=== PATIENT | male | born 1965 | race African-American/Black ===

== ENCOUNTER 2019-04-13 12:31 | Emergency (ER) | payer OTHER ==
[~2019-04-13] VITALS: Ht 170.2 cm; Wt 83.9 kg
[2019-04-13 12:35] VITALS: BP 202/115
[2019-04-13] MEDS ORDERED: ZESTORETIC 20-1 EAC2 PO ×2 (12:38→12:39)
[2019-04-13] MEDS ORDERED: METFORMIN HCL500 MG PO ×2 (12:38→12:39)
== END 2019-04-13 12:50 | disposition home or self-care (01) ==
LOC: M.ERS 12:31
DX: I10 Essential (primary) hypertension (principal); E11.9 Type 2 diabetes mellitus without complications; Z76.0 Encounter for issue of repeat prescription; F17.210 Nicotine dependence, cigarettes, uncomplicated

== ENCOUNTER 2020-04-24 03:46 | Emergency (ER) | payer OTHER ==
[~2020-04-24] VITALS: Ht 170.2 cm; Wt 81.7 kg
[~2020-04-24 03:46] MED LIST: METFORMIN HCL500 MG PO; ZESTORETIC 20-1 EAC2 PO
[2020-04-24] MEDS ORDERED: NORVASC 2.5 MG2.5 M1 PO ×2 (03:58→04:34)
[2020-04-24] MEDS ORDERED: METFORMIN HCL500 MG PO (04:34)
[2020-04-24] MEDS ORDERED: LISINOPRIL-HCT1 EAC2 PO (04:34)
[2020-04-24 04:40] VITALS: BP 146/76
== END 2020-04-24 04:42 | disposition home or self-care (01) ==
LOC: M.ERS 03:46
DX: Z48.01 Encounter for change or removal of surgical wound dressing (principal); Z76.0 Encounter for issue of repeat prescription; I10 Essential (primary) hypertension; E11.9 Type 2 diabetes mellitus without complications; F17.210 Nicotine dependence, cigarettes, uncomplicated